=== PATIENT | female | born 1975 ===

== ENCOUNTER → 2022-10-20 16:25 | Outpatient (CLI) | payer OTHER, SELFPAY ==
--- NOTE | ~2022-10-20 | MR_ITS ---
MRI of the lumbar spine Clinical History: Radiculopathy Technique: Sagittal T1-weighted, T2-weighted, and T2 fat-sat images were acquired. Axial sequences we re not performed. Findings: There is no fracture or subluxation of the lumbar spine. Vertebral bodies maintain normal h eight and alignment. No bone marrow signal abnormality seen. At L1-L2, L2-L3, L3-L4, L4-L5, there is no significant disc bulge or herniation. No spinal canal sten osis or neural foraminal narrowing at these levels. At L5-S1, there is a central disc herniation/extrusion, resulting in probable mild to moderate thecal sac compression. Neural foramina are preserved. Paravertebral soft tissues are grossly unremarkable. Impression: Suboptimal exam as axial images were not performed. Central disc herniation/extrusion at L5-S1, resulting in probable mild to moderate thecal sac marky fito. Reviewed, dictated and finalized at [facility]. Impression: Suboptimal exam as axial images were not performed. Central disc herniation/extrusion at L5-S1, resulting in probable mild to moder ate thecal sac compression.
== END ==
DX: M51.17 Intervertebral disc disorders with radiculopathy, lumbosacral region (principal)
CPT/HCPCS: 72148